=== PATIENT | male | born 1940 | race Caucasian/White ===

== ENCOUNTER → 2021-12-08 | Outpatient (REF) | payer OTHER ==
[2021-12-08 19:42] LABS: APPEARANCE, URINE MANUAL CLEAR (CLEAR); COLOR, URINE MANUAL YELLOW (YELLOW)
[2021-12-08 19:43] LABS: BILIRUBIN, URINE MANUAL NEGATIVE (NEGATIVE); BLOOD URINE MANUAL POSITIVE (NEGATIVE); GLUCOSE, URINE (UA) MANUAL NEGATIVE (NEGATIVE); KETONE, URINE MANUAL NEGATIVE (NEGATIVE); LEUKOCYTE ESTERASE, URINE MAN NEGATIVE (NEGATIVE); NITRITE, URINE MANUAL NEGATIVE (NEGATIVE); PROTEIN, URINE MANUAL 1+ mg/dL (NEGATIVE); UROBILINOGEN, URINE MANUAL NORMAL (NORMAL)
[2021-12-08 20:12] LABS: RBC, URINE 30-40 /hpf (0-3)
[2021-12-08 20:13] LABS: BACTERIA, URINE NONE SEEN; HYALINE CAST, URINE NONE SEEN /lpf (0-1); MUCUS, URINE SMALL AMOUNT (NEGATIVE); SQUAMOUS EPITHELIAL CELL URINE SMALL AMOUNT /hpf (SMALL AMT)
== END ==
LOC: M SMT 17:12
PROVIDERS: ATTEND Urology
DX: Z85.528 Personal history of other malignant neoplasm of kidney (principal)

== ENCOUNTER → 2021-12-15 | Outpatient (CLI) | payer OTHER | LOC: M PLAIMG 09:56 | PROVIDERS: ATTEND Urology | DX: Z90.49 Acquired absence of other specified parts of digestive tract (principal); Z85.528 Personal history of other malignant neoplasm of kidney; N40.0 Benign prostatic hyperplasia without lower urinary tract symptoms ==

== ENCOUNTER → 2023-01-21 | Outpatient (CLI) | payer MEDICARE, OTHER ==
[~2023-01-21] MED LIST: ISOVUE-370 76% 100ML VIAL As Ordered ONE
== END ==
LOC: M RAD 10:30
PROVIDERS: ATTEND Urology
DX: Z53.9 Procedure and treatment not carried out, unspecified reason (principal)

== ENCOUNTER → 2024-06-28 | Day surgery (SDC) | payer MEDICARE, OTHER ==
[~2024-06-28] VITALS: Ht 175.3 cm; Wt 96.5 kg
[~2024-06-28] MED LIST changes: +B-12100010 PO; +CARD180C4 PO; +EZET10TA58 PO; +INSULIN LISPRO (NovoLOG) PER UNIT SC PRN; -ISOVUE-370 76% 100ML VIAL As Ordered ONE; +JARD1TAB3 PO; +MECL-86 PO; +PHENYLEPHRINE 10% OPHTH SOL 5ML OD PRN; +REFR0.5D8 OP; +SITA50TAB PO; +TRIA37.577 PO; +VITA100093 PO; +XARE15TA PO; +fentaNYL 100 MCG/2 ML INJECTION As Ordered ONE
[2024-06-28] MEDS: PHENYLEPHRINE 2.5% OPHTH SOL 2ML OD SCH (07:04)
[2024-06-28] MEDS: TROPICAMIDE 1% OPHTH SOLN 15ML OD SCH (07:04)
[2024-06-28] MEDS: OFLOXACIN 0.3 % (OCUFLOX) OPTH SOL 5ML OD ONE (07:04)
[2024-06-28] MEDS: CYCLOPENTOLATE 1% OPHTH SOLN 2ML BTL OD SCH (07:05)
[2024-06-28] MEDS: LIDOCAINE 3.5 % 1ML OPHTH TOPICAL GEL OU ONE (07:05)
[2024-06-28] MEDS: CEFUROXIME 1MG/0.1ML INTRACAMERAL INJ As Ordered ONE (08:40)
[2024-06-28] MEDS: LIDOCAINE 1% SDV 5ML VIAL As Ordered ONE (08:40)
[2024-06-28] MEDS: BSS IRRIG/VANCO(10MG)/TOBRA(5MG)/EPINEPH(1:1000-0.5CC)500ML BAG-ORONLY As Ordered ONE (08:40)
[2024-06-28 08:55] VITALS: BP 141/85; TEMP 97.5; O2SAT 96
== END | disposition home or self-care (01) ==
LOC: M SDC 05:55
PROVIDERS: ATTEND Ophthalmology
DX: E11.36 Type 2 diabetes mellitus with diabetic cataract (principal); H25.11 Age-related nuclear cataract, right eye; I48.20 Chronic atrial fibrillation, unspecified; I10 Essential (primary) hypertension; E78.00 Pure hypercholesterolemia, unspecified; Z79.84 Long term (current) use of oral hypoglycemic drugs; Z79.01 Long term (current) use of anticoagulants; Z79.899 Other long term (current) drug therapy; Z85.038 Personal history of other malignant neoplasm of large intestine; Z85.528 Personal history of other malignant neoplasm of kidney; Z92.21 Personal history of antineoplastic chemotherapy; Z90.89 Acquired absence of other organs; Z90.49 Acquired absence of other specified parts of digestive tract; Z90.5 Acquired absence of kidney
CPT/HCPCS: 66984; J0697; J3010; V2632